=== PATIENT | female | born 1950 | race Caucasian/White ===

== ENCOUNTER 2019-08-07 08:54 | Day surgery (SDC) | payer MEDICARE, MEDICAID, SELFPAY ==
[2019-08-04 16:54] VITALS: BMI 27.4
[2019-08-07] VITALS (8 sets, daily range): BP systolic 119–168; BP diastolic 55–108; PULSE 60–96; RESP 13–20; TEMP 36.3–36.6; O2SAT 96–100
[2019-08-07] MEDS: midazolam 1 mg/mL INJ 2 mL 2 MG IVP ×2 (09:46→10:12)
[2019-08-07] MEDS: sodium chloride 0.9% 1,000 ML 30 ML IV (09:46)
--- NOTE | 2019-08-07 09:54 | ANES.PREANES ---
Pre-Anesthetic Assessment Pre-Anesthetic Assessment: Height/Weight: Height 1.65 m Weight 74.843 kg Temp Pulse Resp BP Pulse Ox 97.3 F L 96 18 168/93 97 08/07/19 09:25 08/07/19 09:25 08/07/19 09:25 08/07/19 09:25 08/07/19 09:25 Proposed Procedure: Operation Date: 08/07/19 11:00 Proposed Procedures p EGD poss biopsy [id number] K21.9 K80.20(Not Applicable) - Paul Monreal MD s poss Laparoscopic Cholecystectomy poss open(Not Applicable) - Paul Monreal MD Last intake: Intake Last Liquid Date 08/06/19 Last Liquid Time 19:00 Last Solid Date 08/06/19 Last Solid Time 18:00 Social: Social History: Tobacco Exam: Pre-Anes Outpt Exam: alert, oriented x 3, clear to auscultation bilaterally and regular rate & rhythm Airway: Submandibular: WNL Cervical ROM: WNL MP: 2 Dentition: False (upper) Additional comments: teeth very poor History/ROS: No significant history except as noted Pulmonary: Pulmonary: Sleep apnea and SOB CV/HEM: CV/HEM: Afib (h/o) : : None reported Hepatic: Hepatic: None reported GI: GI: GERD (not well controlled) Metabolic: Metabolic: None reported Musc/skel: Musc/skel: OA/DJD Neuropsych: Neuropsych: Anxiety and Depression Anesthetic Plan: ASA status: III Anesthesia: Anesthesia Evaluation and General Risk of > 500 ml blood loss (7ml/kg in children): No Meds/Allergies Current Medications: Current Medications Generic Name Dose Route Start Last Admin Trade Name Freq PRN Reason Stop Dose Admin Sodium Chloride 1,000 mls @ 30 ml s/hr 08/07/19 09:30 08/07/19 09:46 Sodium Chloride 0.9% IV 08/08/19 09:29 30 mls/hr .Q24H ZAHEER Administration PFSH Anesthesia PFSH: Medical History (Updated 08/07/19 @ 09:58 by Michael Rosen MD) Anxiety (Acute) Cholelithiasis (Acute) Chronic atrial fibrillation (Acute) GERD without esophagitis (Acute) Surgical History Cataract extraction status of left eye (Acute) History of arthroscopic knee surgery (Acute) RIGHT X 2 Social History Smoking and tobacco status: current every day smoker Alcohol intake: never Data Anesthesia Cardiac Studies: No Data to Display
--- NOTE | 2019-08-07 09:57 | PM.HPUD ---
H&P update H&P Update: DATE OF SURGERY/PROCEDURE: 08/07/19 DATE H&P PERFORMED: 07/14/19 H&P UPDATE INFORMATION: H&P completed within last 30 days and No changes to prior documentation PLANNED PROCEDURE: Operation Date: 08/07/19 11:00 Proposed Procedures p EGD poss biopsy [id number] K21.9 K80.20(Not Applicable) - Paul Monreal MD s poss Laparoscopic Cholecystectomy poss open(Not Applicable) - Paul Monreal MD Full H&P Medications/Allergies: Current Medications: Current Medications Generic Name Dose Route Start Last Admin Trade Name Freq PRN Reason Stop Dose Admin Sodium Chloride 1,000 mls @ 30 ml s/hr 08/07/19 09:30 08/07/19 09:46 Sodium Chloride 0.9% IV 08/08/19 09:29 30 mls/hr .Q24H ZAHEER Administration Perinent History: Social History: Social History Smoking and tobacco status: current every day smoker Alcohol intake: never
[2019-08-07] MEDS: ciprofloxacin 400 MG/200 ML PREMIX 200 MG IV (10:58)
--- NOTE | 2019-08-07 11:15 | PM.OP ---
Operative Report Date of procedure: 08/07/19 Pre-op Diagnosis: GERD Cholelithiasis Post-op Diagnosis: Normal EGD Cholelithiasis Procedure Done: Laparoscopic cholecystectomy Specimens removed/disposition: Gallbladder Surgeon: Paul Monreal Anesthesia: General Estimated blood loss (mL): 10 Condition: stable Disposition: PACU Procedure: The patient was taken to the operating room and was intubated under general anesthesia. A gastroscope was introduced and advanced up to the second portion of the duodenum and slowly withdrawn. The first and second portion of the duodenum was normal. The fundus, antrum, body and pylorus of the stomach was normal. The Z line was at 40 cm. The rest of the esophagus was normal. After the antibiotic had been administered, the abdomen was prepped and draped in a sterile manner. Using a #15 blade, a 1 centimeter infraumbilical curvilinear incision was made and using an open Jaimee technique the peritoneal cavity was entered. A 10 millimeter port was placed and 15 millimeters of pneumoperitoneum was created. A 10 millimeter, 30 degrees scope was then introduced. Three 5 millimeter ports were placed in the epigastric, midclavicular and the anterior axillary line two fingerbreadths below the costal margin on the right side under the direct visualization. Ratcheted forceps were introduced into the lateral most port and was used to retract the fundus of the gallbladder cephalad and using forceps the infundibulum of the gallbladder was retracted laterally. Using L-hook cautery the peritoneum overlying the Calot's triangle was opened medially and laterally until the cystic duct and the cystic artery were skeletonized. Dissection was carried along the body of the gallbladder and after ensuring critical view of safety, 4 clips applied on the cystic duct and 3 clips applied on the cystic artery and cut leaving, 3 clips on the remaining portion of the duct and 2 clips on the remaining portion of the artery. The rest of the gallbladder was dissected off the liver using L-hook cautery. There was no bleeding or bile leaking noted from the gallbladder fossa and the clips appeared to be in place. An EndoCatch bag was introduced to remove the gallbladder. All the ports were removed under direct visualization and there was no bleeding noted from the port sites. The fascia of the umbilicus was closed using [id number] 0 Vicryl sutures and the subcutaneous tissue was approximated using 3-0 Vicryl sutures. The skin at all four ports were closed using 4-0 Monocryl and Dermabond. A total of 10 millimeters of 0.5% Marcaine was infiltrated around the port sites. The patient was stable throughout the procedure.
[2019-08-07] MEDS: ondansetron 2 mg/ML SDV 2 mL 4 MG IVP (12:02)
== END 2019-08-07 13:05 | disposition home or self-care (01) ==
PROVIDERS: Family Provider Nurse Practitioner Family; PCP Registered Nurse; Visit Provider Surgery
PROC: 0DJ08ZZ Inspection of Upper Intestinal Tract, Via Natural or Artificial Opening Endoscopic (ICD-10-PCS; CPT 43235; principal; 2019-08-07 11:00)
PROC: 0FT44ZZ Resection of Gallbladder, Percutaneous Endoscopic Approach (ICD-10-PCS; CPT 47562; 2019-08-07 11:00)
DX: K80.10 Calculus of gallbladder with chronic cholecystitis without obstruction (principal); F17.210 Nicotine dependence, cigarettes, uncomplicated; I48.20 Chronic atrial fibrillation, unspecified; M19.90 Unspecified osteoarthritis, unspecified site; K21.9 Gastro-esophageal reflux disease without esophagitis; G47.30 Sleep apnea, unspecified
CPT/HCPCS: 47562; 12345; 88304; 96365; 96374; 96375; J0744; J1100; J2001; J2250; J2405; J2704; J2710; J3010; J3490; J7030

== ENCOUNTER → 2019-11-23 10:13 | Outpatient (BNVA) | payer MEDICARE, MEDICAID, SELFPAY | PROVIDERS: Family Provider Nurse Practitioner Family; PCP Registered Nurse; Referring Provider Registered Nurse; Visit Provider Podiatrist Foot & Ankle Surgery | DX: M79.671 Pain in right foot (principal); M79.672 Pain in left foot; M77.32 Calcaneal spur, left foot; M72.2 Plantar fascial fibromatosis | CPT/HCPCS: 73630 ==

== ENCOUNTER 2019-11-23 12:12 | Outpatient (CLI) | payer MEDICARE, MEDICAID, SELFPAY | END 2019-11-23 12:13 | disposition home or self-care (01) | LOC: SPT 12:13 | PROVIDERS: Family Provider Nurse Practitioner Family; PCP Registered Nurse; Visit Provider Podiatrist Foot & Ankle Surgery | DX: Z46.89 Encounter for fitting and adjustment of other specified devices (principal); M72.2 Plantar fascial fibromatosis; M79.671 Pain in right foot; M79.672 Pain in left foot; M77.32 Calcaneal spur, left foot | CPT/HCPCS: 73630; L4397 ==

== ENCOUNTER 2020-01-01 08:31 | Outpatient (CLI) | payer MEDICARE, MEDICAID, SELFPAY ==
--- NOTE | 2020-01-01 09:30 | MR_ITS ---
WS: [id number] MRI LEFT KNEE NONCONTRAST TECHNIQUE: Axial PD, coronal PD fat sat, coronal PD, sagittal PD, and sagittal PD fat-sat images obta ined. CLINICAL INFORMATION: M25.561 Pain in left knee COMPARISON: None. FINDINGS: Distal quadriceps and patella tendons are intact. Normal ACL. Normal posterior cruciate ligament. Sma ll amount of prepatellar and infrapatellar soft tissue edema. Small suprapatellar effusion. Joint susana nt space narrowing worse in the medial joint compartment. Edema in the medial tibial plateau. Edema a long the medial collateral ligament which appears intact. No significant edema in the medial femoral condyle. Mild chronic narrowing of the medial and lateral meniscus. Small amount of chronic intrasubstance sig nal abnormality involving the posterior horn medial meniscus. Subacute appearing horizontal tear invo lving the posterior horn medial meniscus extending to the meniscal root. Mild chondromalacia patella. Small amount of popliteal edema. MR/MR knee LT wo con* [id number] IMPRESSION: 1. Anterior and posterior cruciate ligaments are intact. 2. Horizontal tear involving the posterior horn medial meniscus extending to t he meniscal root. Chronic thinning of the medial and lateral meniscus. 3. Diffuse edema involving the medial tibial plateau extending to the articula r surface with a small amount of edema along the medial collateral ligament whi ch appears intact consistent with grade 1 injury. 4. Small amount of prepatellar and popliteal edema. Small joint effusion. 5. Mild chondromalacia patella.
== END 2020-01-01 08:32 | disposition home or self-care (01) ==
LOC: RADSHAW 08:40
PROVIDERS: PCP Nurse Practitioner Family; Visit Provider Nurse Practitioner Family
DX: S83.242A Other tear of medial meniscus, current injury, left knee, initial encounter (principal); X58.XXXA Exposure to other specified factors, initial encounter; R60.9 Edema, unspecified; M25.462 Effusion, left knee; M22.42 Chondromalacia patellae, left knee
CPT/HCPCS: 73721

== ENCOUNTER → 2020-06-12 08:32 | Outpatient (BNVA) | payer MEDICARE, MEDICAID, SELFPAY | PROVIDERS: PCP Nurse Practitioner Family; Visit Provider Internal Medicine | DX: M89.49 Other hypertrophic osteoarthropathy, multiple sites (principal); Z79.899 Other long term (current) drug therapy; Z11.59 Encounter for screening for other viral diseases; Z11.1 Encounter for screening for respiratory tuberculosis; M32.9 Systemic lupus erythematosus, unspecified; D86.9 Sarcoidosis, unspecified; M54.2 Cervicalgia; K12.1 Other forms of stomatitis; M35.2 Behcet's disease; Z87.891 Personal history of nicotine dependence; M25.50 Pain in unspecified joint | CPT/HCPCS: 36415; 80053; 82306; 82310; 82550; 82728; 82784; 82955; 83516; 83540; 83735; 83970; 84100; 84443; 85025; 85651; 86431; 86480; 86704; 86803; 86812; 87340; 99203; 99204 ==

== ENCOUNTER 2020-06-19 07:42 | Outpatient (CLI) | payer MEDICARE, MEDICAID, SELFPAY ==
--- NOTE | 2020-06-19 09:00 | XR_ITS ---
WS: [id number] Left hand, 2 views, 06/19/2020 Clinical Data: M89.49 - Other hypertrophic osteoarthropathy, multiple sites Comparison: Left hand, 10/12/2017. Findings: No fractures or dislocations are seen. There is osteoarthritic change of the PIP and DIP joints which has progressed moderately. There is minimal osteoarthritis of the left first IP joint. The MP joints are spared. No periarticular demineralization or calcifications are seen. XR/XR hand LT 2V [id number] Impression: Moderate progression of the left hand PIP and DIP joint osteoarthritis.
--- NOTE | 2020-06-19 09:30 | XR_ITS ---
WS: [id number] Right hand, 2 views, 06/19/2020 Clinical Data: M89.49 - Other hypertrophic osteoarthropathy, multiple sites Comparison: None. Findings: No fractures or dislocations are seen. There is osteoarthritic change of the PIP and DIP joints of the second through fifth digits with moderate narrowing and sclerosis. There is osteoarthri tic change of the right first IP joint. The MP joints are spared.No periarticular demineralization or calcifications are seen. XR/XR hand RT 2V [id number] Impression: Osteoarthritis of the right hand PIP and DIP joints.
--- NOTE | 2020-06-19 09:45 | XR_ITS ---
WS: [id number] Left foot, 2 views, 06/19/2020 Clinical Data: M25.50 - Pain in unspecified joint Comparison: Bilateral feet, 11/23/2019. Findings: No fractures or dislocations are seen. No bone destruction or erosion is noted. The joint spaces and soft tissues are normal. There is a small plantar spur and Achilles spur. XR/XR foot LT 2V [id number] Impression: Negative left foot.
--- NOTE | 2020-06-19 10:00 | XR_ITS ---
WS: [id number] Right foot, 2 views, 06/19/2020 Clinical Data: M25.50 - Pain in unspecified joint Comparison: None. Findings: No fractures or dislocations are seen. No bone destruction or erosion is noted. The joint spaces and soft tissues are normal. No periarticular demineralization or calcifications are seen. XR/XR foot RT 2V [id number] Impression: Negative right foot.
--- NOTE | 2020-06-19 10:30 | XR_ITS ---
WS: [id number] Lateral views of cervical spine in the flexion, extension and neutral positions. 06/19/2020 Clinical Data: M89.49 - Other hypertrophic osteoarthropathy, multiple sites Comparison: Cervical spine, 01/06/2011. Findings: There is anterior osteoarthritic spurring from C3 through C6. Degenerative disc narrowing is present at C4-C5 and C5-C6. No prevertebral soft tissue swelling is seen. No compression fractures are noted. No limitation of motion or subluxation is seen on flexion or extension. XR/XR cervical spine fl/ex [id number] Impression: 1. Osteoarthritis from C3 through C6. 2. Degenerative disc narrowing at C4-C5 and C5-C6. 3. No limitation of motion or subluxation is seen on flexion or extension.
--- NOTE | 2020-06-19 11:00 | XR_ITS ---
WS: [id number] Chest 2 views, 06/19/2020 Clinical Data: R76.12 - Nonspecific reaction to cell mediated immunity measurement of gamma interfero n antigen response without active tuberculosis Comparison: PA chest, 01/31/2017. Findings: No nodules, masses or effusions are seen. The heart is normal. The pulmonary vascularity is not increased. No pneumonia or pneumothorax is seen. The diaphragms are flattened. The aortic arch a nd descending aorta show minimal tortuosity and calcification. XR/XR chest 2V* [id number] Impression: Hyperinflation and atherosclerosis.
== END 2020-06-19 07:43 | disposition home or self-care (01) ==
LOC: RAD 07:46
PROVIDERS: PCP Nurse Practitioner Family; Visit Provider Internal Medicine
DX: M89.49 Other hypertrophic osteoarthropathy, multiple sites (principal); R76.12 Nonspecific reaction to cell mediated immunity measurement of gamma interferon antigen response without active tuberculosis; M25.50 Pain in unspecified joint; I70.90 Unspecified atherosclerosis; M47.812 Spondylosis without myelopathy or radiculopathy, cervical region; M19.042 Primary osteoarthritis, left hand; M19.041 Primary osteoarthritis, right hand
CPT/HCPCS: 71046; 72040; 73120; 73620

== ENCOUNTER → 2020-06-27 09:47 | Outpatient (BNVA) | payer MEDICARE, MEDICAID, SELFPAY | PROVIDERS: PCP Nurse Practitioner Family; Visit Provider Internal Medicine | DX: M25.50 Pain in unspecified joint (principal); M89.49 Other hypertrophic osteoarthropathy, multiple sites; M54.2 Cervicalgia; Z79.899 Other long term (current) drug therapy; R76.8 Other specified abnormal immunological findings in serum; R76.12 Nonspecific reaction to cell mediated immunity measurement of gamma interferon antigen response without active tuberculosis; R70.0 Elevated erythrocyte sedimentation rate; Z87.891 Personal history of nicotine dependence | CPT/HCPCS: 99214 ==

== ENCOUNTER 2020-07-22 07:40 | Outpatient (CLI) | payer MEDICARE, MEDICAID, SELFPAY ==
--- NOTE | 2020-07-22 08:39 | FL_ITS ---
WS: [id number] ESOPHAGRAM TECHNIQUE: Double contrast examination was performed with thin and thick barium. Upright and GROSS imag es were obtained. CLINICAL INFORMATION: DYSPHAGIA COMPARISON: None. Fluoroscopy time 2.5 minutes FINDINGS: Swallowing: Penetration with thin liquids. No active aspiration. Esophagus: Mild esophageal dysmotility. No evidence of high-grade stricture or obstructing mass. No d ifficulties with barium tablet. Gastroesophageal reflux: Moderate esophageal hiatal hernia. Active reflux in the supine and upright p ositions. Evidence of reflux esophagitis in the distal esophagus. Rugal fold thickening consistent with gastrit is.Eccentric ulceration at the GE junction may be due to reflux esophagitis. Neoplasm not entirely ex cluded. This can be further evaluated with endoscopy. Fluoroscopy time: 2.5 minutes. FL/WV barium swallow [id number] IMPRESSION: 1. Penetration with thin liquids. No active aspiration. 2. Mild esophageal dysmotility. No evidence of stricture. 3. Moderate esophageal hiatal hernia with active reflux visualized in the upri ght and supine positions. 4. Eccentric concave ulceration at the GE junction may be due to reflux esopha gitis. Neoplasm not entirely excluded. Recommend further evaluation with endosc opy. 5. Evidence of reflux esophagitis in the distal esophagus. Rugal fold thickeni ng consistent with gastritis.
--- NOTE | 2020-07-22 08:39 | CT_ITS ---
WS: [id number] CT NECK TECHNIQUE: Contrast-enhanced CT of the neck with coronal and sagittal reformatted images. CLINICAL INFORMATION: DYSPHAGIA COMPARISON: None. DLP: 2282.[address] scans at [facility] use at least one of these dose optimization techniques: automat ed exposure control; mA and/or kV adjustment per patient size (includes targeted exams where dose is matched to clinical indication); or iterative reconstruction. FINDINGS: Parotid glands are normal. Normal submandibular glands. Normal thyroid gland. Tongue base is normal. Normal parapharyngeal fat. No evidence of supraglottic or glottic mass. Lung apices are well aerated. Partially visualized intracranial contents are normal. Mastoid air cells are well aerated. Partial o pacification of the hypoplastic left maxillary sinus. Paranasal sinuses are otherwise well aerated. N o cervical lymphadenopathy. Moderate spondylitic changes cervical spine. CT/CT neck w con* [id number] IMPRESSION: 1. No evidence of supraglottic or glottic mass. 2. Subglottic airway is patent. 3. No cervical lymphadenopathy. 4. Normal salivary glands. 5. Partial opacification left maxillary sinus. 6. Normal tongue base and parapharyngeal fat.
[2020-07-22] MEDS: iohexol 300 mg/mL 100 mL Btl IV (09:13)
== END 2020-07-22 07:41 | disposition home or self-care (01) ==
PROVIDERS: PCP Nurse Practitioner Family; Visit Provider Specialist
DX: R13.10 Dysphagia, unspecified (principal); K44.9 Diaphragmatic hernia without obstruction or gangrene
CPT/HCPCS: 70491; 74220; Q9967

== ENCOUNTER → 2020-07-25 11:00 | Outpatient (BNVA) | payer MEDICARE, MEDICAID, SELFPAY | PROVIDERS: PCP Nurse Practitioner Family; Referring Provider Internal Medicine; Visit Provider Student in an Organized Health Care Education/Training Program | DX: R76.12 Nonspecific reaction to cell mediated immunity measurement of gamma interferon antigen response without active tuberculosis (principal); R76.8 Other specified abnormal immunological findings in serum; J06.9 Acute upper respiratory infection, unspecified; R68.89 Other general symptoms and signs | CPT/HCPCS: 87015; 87116; 87206; 87801 ==

== ENCOUNTER 2020-07-31 09:24 | Outpatient (CLI) | payer MEDICARE, MEDICAID, SELFPAY ==
--- NOTE | 2020-07-31 10:30 | CT_ITS ---
WS: [id number] CT CHEST WITHOUT INTRAVENOUS CONTRAST HISTORY: cough, right chest pain TECHNIQUE: Contiguous 5 mm axial imaging performed on the thorax. Coronal and sagittal reformats are submitted. All CT scans at [facility] use at least one of these dose optimization techniq ues: automated exposure control; mA and/or kV adjustment per patient size (includes targeted exams wh ere dose is matched to clinical indication); or iterative reconstruction. CONTRAST: None DLP: 923.87 mGycm COMPARISON: 03/13/2000 Lungs and central airway: Well aerated lungs. No pneumonia or pulmonary mass. Focal area of bronchial wall thickening in the anterior RIGHT middle lobe. Similar findings anteriorly in the LEFT upper lob e. There is very mild bronchiectasis in the RIGHT middle lobe. Pleura: Normal. No pleural effusion. Heart and pericardium: Normal size heart with no pericardial effusion. Mediastinum and khushbu: No mediastinum or hilar adenopathy. Vessels: Minimal atherosclerotic plaque within the aorta. Pulmonary artery size is slightly enlarged. Chest wall and lower neck: No soft tissue masses. Upper abdomen: Prior cholecystectomy. No bile duct dilatation. Mild hepatic steatosis. No adrenal mas s. Exophytic cyst from the LEFT kidney has increased in size since 2009. Maximum diameter of the cyst is 2.1 cm. Osseous structures: No destructive process. CT/CT chest wo con [id number] IMPRESSION: 1. No pneumonia. 2. Interval development of very mild bronchiectasis in the RIGHT middle lobe w ith a small amount of adjacent bronchial wall thickening. 3. Mild atherosclerosis aorta. 4. Mild pulmonary hypertension. 5. Prior cholecystectomy.
== END 2020-07-31 09:25 | disposition home or self-care (01) ==
LOC: RADWPI 09:28
PROVIDERS: PCP Registered Nurse; Visit Provider Student in an Organized Health Care Education/Training Program
DX: R05 Cough (principal); R07.89 Other chest pain; Z90.49 Acquired absence of other specified parts of digestive tract; I27.20 Pulmonary hypertension, unspecified; I70.0 Atherosclerosis of aorta; R76.12 Nonspecific reaction to cell mediated immunity measurement of gamma interferon antigen response without active tuberculosis
CPT/HCPCS: 71250; 87086

== ENCOUNTER → 2020-08-16 11:38 | Outpatient (BNVA) | payer MEDICARE, MEDICAID, SELFPAY | PROVIDERS: PCP Registered Nurse; Visit Provider Surgery | DX: K21.00 Gastro-esophageal reflux disease with esophagitis, without bleeding (principal) | CPT/HCPCS: 87635 ==

== ENCOUNTER → 2020-08-20 10:43 | Outpatient (BNVA) | payer MEDICARE, MEDICAID, SELFPAY | PROVIDERS: PCP Registered Nurse; Visit Provider Student in an Organized Health Care Education/Training Program | DX: N30.90 Cystitis, unspecified without hematuria (principal); R76.12 Nonspecific reaction to cell mediated immunity measurement of gamma interferon antigen response without active tuberculosis; Z22.7 Latent tuberculosis; M25.50 Pain in unspecified joint | CPT/HCPCS: 80076; 81000; 87086 ==

== ENCOUNTER 2020-08-21 05:56 | Day surgery (SDC) | payer MEDICARE, MEDICAID, SELFPAY ==
[2020-08-20 11:06] VITALS: BMI 34.2
--- NOTE | 2020-08-21 06:25 | W.PM.OPSUD ---
Surgery/Procedure H&P Update DATE OF PROCEDURE: August 21, 2020 DATE H&P PERFORMED: 08/15/20 H&P UPDATE INFORMATION: I have reviewed H&P completed within last 30 days, I have examined patient prior to procedure and No changes to prior documentation PREOP DIAGNOSIS: Dysphagia PRIMARY INDICATION FOR PROCEDURE: The same PLANNED PROCEDURE: Operation Date: 08/21/20 07:00 Proposed Procedures p EGD 12226 K21.00(Not Applicable) - Raimundo Narvaez MD
[2020-08-21] MEDS: lidocaine 1% INJ 20 mL INTRADERMA (06:26)
[2020-08-21] MEDS: sodium chloride 0.9% 1,000 ML 30 ML IV (06:35)
--- NOTE | 2020-08-21 06:40 | P.ANESASSM_ITS ---
Pre-Anesthetic Assessment Pre-Anesthetic Assessment: Height/Weight: Height 1.55 m Weight 82.1 kg Preop Diagnosis: Dysphagia Proposed Procedure: Operation Date: 08/21/20 07:00 Proposed Procedures p EGD 13893 K21.00(Not Applicable) - Raimundo Narvaez MD Familial anesthetic complications: None Was Beta Lauryn taken within 24 hours: N/A Last intake: Intake Last Liquid Date 08/20/20 Last Liquid Time 19:30 Last Solid Date 08/20/20 Last Solid Time 17:00 Social: Social History: No alcohol and No tobacco Comment: former smoker Exam: Pre-Anes Outpt Exam: alert, oriented x 3, clear to auscultation bilaterally and regular rate & rhythm Airway: Cervical ROM: WNL MP: 3 Dentition: Other (no teeth) Pulmonary: Pulmonary: COPD Comments: I have the Tb germ, but the [facility] de partment says i'm not contagious CV/HEM: CV/HEM: Afib GI: GI: GERD Anesthetic Plan: ASA status: 3 Anesthesia: MAC Risk of > 500 ml blood loss (7ml/kg in children): No Meds/Allergies Current Medications: Current Medications Generic Name Dose Route Start Last Admin Trade Name Freq PRN Reason Stop Dose Admin Sodium Chloride 1,000 mls @ 30 ml s/hr 08/21/20 06:00 08/21/20 06:35 Sodium Chloride 0.9% IV 30 mls/hr .Q24H ZAHEER Administration PFSH Anesthesia PFSH: Medical History Anxiety Chronic atrial fibrillation GERD without esophagitis Suspected tuberculosis Surgical History Cataract extraction status of left eye History of arthroscopic knee surgery RIGHT X 2 Status post laparoscopic cholecystectomy (~07/2019) [place] [facility] History Smoking and tobacco status: former smoker Alcohol intake: never History of recent travel: No Data Anesthesia Cardiac Studies: No Data to Display
[2020-08-21 07:08] VITALS: BP 136/66; PULSE 74; RESP 16; TEMP 36.1; O2SAT 97
--- NOTE | 2020-08-21 07:10 | ANE.PACU2 ---
Inpatient post-anesthesia follow up: Vital signs: Temperature 97 F Pulse Rate 74 Respiratory Rate 16 Blood Pressure 136/66 Pulse Oximetry 97 Oxygen Delivery Me thod Room Air Oxygen Flow Rate Fraction of Inspir ed Oxygen
[2020-08-21 07:21] VITALS: BP 137/70; PULSE 70; RESP 16; O2SAT 100
[2020-08-22 05:52] LABS: H. Pylori / CLO Test Negative
== END 2020-08-21 07:34 | disposition home or self-care (01) ==
PROVIDERS: PCP Registered Nurse; Visit Provider Surgery
PROC: 0DJ08ZZ Inspection of Upper Intestinal Tract, Via Natural or Artificial Opening Endoscopic (ICD-10-PCS; CPT 43235; principal; 2020-08-21 07:00)
DX: R13.10 Dysphagia, unspecified (principal); K44.9 Diaphragmatic hernia without obstruction or gangrene; K29.70 Gastritis, unspecified, without bleeding; J44.9 Chronic obstructive pulmonary disease, unspecified; I48.91 Unspecified atrial fibrillation; K21.9 Gastro-esophageal reflux disease without esophagitis; Z87.891 Personal history of nicotine dependence
CPT/HCPCS: 12345; 43239; 87077; J2704; J7030

== ENCOUNTER → 2020-11-12 11:45 | Outpatient (BNVA) | payer MEDICARE, MEDICAID, SELFPAY | PROVIDERS: PCP Registered Nurse; Visit Provider Student in an Organized Health Care Education/Training Program | DX: Z22.7 Latent tuberculosis (principal) | CPT/HCPCS: 82977; 83615; 84450; 84460 ==

== ENCOUNTER 2021-05-23 10:06 | Emergency (ER) | payer MEDICARE, MEDICAID, SELFPAY ==
[2021-05-23 10:23] VITALS: BP 125/77; PULSE 82; RESP 18; TEMP 36.8; O2SAT 96; BMI 26.6
--- NOTE | 2021-05-23 10:32 | ED_ITS ---
HPI - Ear Problem General: Chief complaint: Ear Stated complaint: L EAR PAIN Time Seen by Provider: 05/23/21 10:31 History of Present Illness: MD Complaint: ear pain (left ear) Location: left ear Duration: constant Severity: moderate Relieving factors: NDAIDs Exacerbating factors: nothing Discharge from ear: no Associated symptoms: Reports ear or mastoid pain (left ear) and headache(s); Denies external ear pain, fever(s) or neck pain Treatment prior to arrival: none Review of Systems Const: Denies: fever(s), chills or fatigue Eyes: Denies: change in vision or eye discomfort ENMT: Reports: throat pain, odynophagia and ear or mastoid pain (left ear); Denies: nasal discharge or nasal congestion Card: Denies: chest pain, palpitations, edema, swelling of feet/ankles, dyspnea on exertion or orthopnea Resp: Denies: dyspnea, productive cough or non-productive cough GI: Denies: abdominal pain, nausea, vomiting, diarrhea, constipation or hematochezia : Denies: flank pain, dysuria or hematuria Musc: Denies: neck pain, back pain or extremity swelling Skin/Breast: Denies: rash or new lesions Neuro: Reports: headache(s); Denies: numbness in extremities or weakness in extremities PFSH ED PFSH: Medical History Anxiety Behcet's syndrome Chronic atrial fibrillation Fibromyalgia GERD without esophagitis Suspected tuberculosis Surgical History Cataract extraction status of left eye History of arthroscopic knee surgery RIGHT X 2 History of esophagogastroduodenoscopy (EGD) (~08/2020) Status post laparoscopic cholecystectomy (~07/2019) Performed at [facility] [place] Family History Father CAD (coronary artery disease) Brother Cancer Sister Cancer Denies family history of Diabetes Clotting disorder Dementia Chronic kidney disease (CKD) Suicide Anesthesia complication Bleeding disorder Lung disease Stroke Social History Smoking and tobacco status: former smoker Alcohol intake: never History of recent travel: No Physical Exam Const: COMMON NORMALS: no acute distress, patient oriented x3, healthy appearing and alert GENERAL APPEARANCE: cooperative and comfortable HENMT: COMMON NORMALS: normocephalic, external ears normal and EAC's normal HEAD & SCALP: normocephalic EXTERNAL EAR: Yes external ears normal EXTERNAL AUDITORY CANAL: EAC's normal TYMPANIC MEMBRANE: TM normal on the right and TM abnormal TM laterality: left Details: effusion Details: purulent, erythematous and fluid behind TM MOUTH: Normal oral and palatal mucosa present THROAT: uvula midline and posterior oropharynx abnormal edema and erythema Eye: COMMON NORMALS: Equal, round and reactive pupils present PUPIL: Yes Equal, round and reactive pupils present Neck/C-Spine: COMMON NORMALS: supple GENERAL: Yes normal visual inspection Resp: COMMON NORMALS: normal respiratory effort, No retractions, No use of accessory muscles and clear to auscultation bilaterally AUSCULTATION: clear to auscultation bilaterally Cardio: COMMON NORMALS: regular rate, regular rhythm, S1 normal heart sound present, S2 normal heart sound present, No gallops present (Cardio), No clicks present (Cardio), No murmurs present (Cardio) and Peripheral pulses 2+ throughout RATE: regular rate RHYTHM: regular rhythm HEART SOUNDS: S1 normal heart sound present and S2 normal heart sound present PERIPHERAL PULSES: Peripheral pulses 2+ throughout GI: COMMON NORMALS: Normal to inspection, nondistended, normoactive bowel sounds present, Soft to palpation, non-tender and no masses PALPATION: Yes Soft to palpation : COMMON NORMALS: Yes no CVA tenderness BLADDER/KIDNEY EXAM: Yes no CVA tenderness Back/Pelvis: COMMON NORMALS: no CVA tenderness Extremity: COMMON NORMALS: normal to inspection Neuro: COMMON NORMALS: patient oriented x3 and moves all extremities SENSORIUM/ORIENTATION: Yes alert Skin: GENERAL SKIN EXAM: dry skin Course Vital Signs: Vital signs: Vital Signs Temperature 98.2 F 05/23/21 11:01 Pulse Rate 62 05/23/21 11:01 Respiratory Rate 16 05/23/21 11:01 Blood Pressure 120/69 05/23/21 11:01 Pulse Oximetry 96 05/23/21 10:23 MDM - Ear MDM Narrative: Medical decision making narrative: Patient is a 70-year-old female comes to the ED with left ear pain. She also endorses having a sore throat and headache as well. Denies any drainage from ear. Vitals are stable. Exam shows otitis media left ear and hair posterior oropharynx had some erythema and swelling noted. Strep test was negative. Patient was diagnosed with otitis media and pharyngitis. She was discharged home with a prescription for amoxicillin. She was told to follow-up with her PCP in 7 to 10 days for reevaluation. Patient understood and agreed with plan. Lab Data: Labs: Lab Results 05/23/21 10:50 Group A Strep Rapi d Negative (Negative) Discharge Plan Discharge Patient Disposition: Home Clinical Impression: Otitis media Qualifiers: Otitis media type: serous Chronicity: acute Laterality: left Recurrence: non- recurrent Qualified Code(s): H65.02 - Acute serous otitis media, left ear Pharyngitis Qualifiers: Pharyngitis/tonsillitis etiology: unspecified etiology Qualified Code(s): J02.9 - Acute pharyngitis, unspecified Condition: Stable Prescriptions: New amoxicillin 500 mg capsule 500 mg PO BID 10 Days Qty: 20 RF: 0 No Action Ambien 10 mg tablet 10 mg PO BEDTIME 30 Days Qty: 30 RF: 5 diclofenac sodium [Voltaren] 1 % gel 4 gm TOPICAL QID Qty: 100 RF: 1 Hold Instructions: Resume on 08/28/20. isoniazid 300 mg tablet 300 mg PO .weekly 90 Days Qty: 36 RF: 0 pyridoxine (vitamin B6) 50 mg tablet 50 mg PO DAILY Qty: 90 RF: 0 Colace 100 mg capsule 100 mg PO BID PRN (Reason: Constipation) RF: 0 vitamin B complex Tablet 1 tab PO DAILY RF: 0 fluorouracil 5 % cream 1 applic topical BID 21 Days Qty: 40 RF: 0 Nexium 20 mg Capsule,Delayed Release(Dr/Ec) 40 mg PO DAILY Qty: 0 RF: 0 Discharge Orders: Discharge ED (Routine); Ordered 05/23/21 Ordered By: Harsha Ford Referrals: Malou Cummings FNP [Primary Care Provider] - Discharge Diet: Regular Discharge Activity: Increase activity as tolerated Patient Instructions: Otitis Media - Adult, Pharyngitis (ED) Activity Restrictions/Additional Instructions: Follow-up with medical provider as directed in 7 to 10 days for reevaluation. Take medications as prescribed. Return to the ER or your medical provider if condition worsens. Please read and understand discharge instructions. Thank you for choosing [facility] for your healthcare needs today. Please realize this is an emergency room and that we are providing you with a medical screening exam and this may not be complete and all inclusive of all the testing and or work up that you may need to determine your ailment or severity of your illness. It is very important that you follow up as instructed or that you return to the Emergency Department should you have concerns or if your condition changes or worsens in any way. Coding Level of Care Code ED It Service Delivery Manager for Latha Fwdevi Exam Comprehensive
[2021-05-23] MEDS: ibuprofen 800 mg tablet PO (11:00)
[2021-05-23 11:01] VITALS: BP 120/69; PULSE 62; RESP 16; TEMP 36.8
[2021-05-23 11:31] LABS: Rapid Strep A Test Negative (Negative)
== END 2021-05-23 11:09 | disposition home or self-care (01) ==
PROVIDERS: Emergency Provider Physician Assistant; PCP Registered Nurse
DX: H65.02 Acute serous otitis media, left ear (principal); J02.9 Acute pharyngitis, unspecified; Z87.891 Personal history of nicotine dependence
CPT/HCPCS: 87081; 87880; 99283

== ENCOUNTER → 2022-01-06 08:18 | Outpatient (BNVA) | payer MEDICARE, MEDICAID, SELFPAY | PROVIDERS: PCP Family Medicine; Visit Provider Family Medicine Adult Medicine | DX: R39.89 Other symptoms and signs involving the genitourinary system (principal) | CPT/HCPCS: 81000 ==

== ENCOUNTER → 2022-04-15 08:58 | Outpatient (BNVA) | payer MEDICARE, MEDICAID, SELFPAY | PROVIDERS: PCP Family Medicine; Visit Provider Internal Medicine Pulmonary Disease | DX: R06.09 Other forms of dyspnea (principal); R76.8 Other specified abnormal immunological findings in serum; M25.641 Stiffness of right hand, not elsewhere classified; M25.642 Stiffness of left hand, not elsewhere classified; R91.8 Other nonspecific abnormal finding of lung field; Z87.891 Personal history of nicotine dependence; Z86.15 Personal history of latent tuberculosis infection | CPT/HCPCS: 99204 ==

== ENCOUNTER → 2022-04-27 09:14 | Outpatient (BNVA) | payer MEDICARE, MEDICAID, SELFPAY | PROVIDERS: PCP Family Medicine; Visit Provider Obstetrics & Gynecology | DX: N81.3 Complete uterovaginal prolapse (principal) | CPT/HCPCS: 76830 ==

== ENCOUNTER → 2022-05-18 10:29 | Outpatient (BNVA) | payer MEDICARE, MEDICAID, SELFPAY | PROVIDERS: PCP Family Medicine; Visit Provider Internal Medicine Pulmonary Disease | DX: R91.8 Other nonspecific abnormal finding of lung field (principal); M25.641 Stiffness of right hand, not elsewhere classified; M25.642 Stiffness of left hand, not elsewhere classified; R76.8 Other specified abnormal immunological findings in serum; Z87.891 Personal history of nicotine dependence; J47.9 Bronchiectasis, uncomplicated; Z86.15 Personal history of latent tuberculosis infection | CPT/HCPCS: 99214 ==

== ENCOUNTER 2022-05-20 08:45 | Outpatient (CLI) | payer MEDICARE, MEDICAID, SELFPAY | END 2022-05-20 08:46 | disposition home or self-care (01) | PROVIDERS: PCP Family Medicine; Visit Provider Internal Medicine Pulmonary Disease | DX: R06.09 Other forms of dyspnea (principal) | CPT/HCPCS: 94010; 94618; 94726; 94729 ==

== ENCOUNTER → 2022-06-25 09:25 | Outpatient (BNVA) | payer MEDICARE, MEDICAID, SELFPAY | PROVIDERS: PCP Family Medicine; Visit Provider Internal Medicine | DX: R76.8 Other specified abnormal immunological findings in serum (principal); M89.49 Other hypertrophic osteoarthropathy, multiple sites; K12.1 Other forms of stomatitis; M54.2 Cervicalgia; R76.12 Nonspecific reaction to cell mediated immunity measurement of gamma interferon antigen response without active tuberculosis; R70.0 Elevated erythrocyte sedimentation rate | CPT/HCPCS: 36415; 80053; 81001; 82550; 83516; 84155; 84165; 85025; 85651; 86036; 86140; 99214 ==

== ENCOUNTER → 2022-07-22 10:34 | Outpatient (BNVA) | payer MEDICARE, MEDICAID, SELFPAY | PROVIDERS: PCP Family Medicine; Visit Provider Internal Medicine | DX: R76.8 Other specified abnormal immunological findings in serum (principal); K12.1 Other forms of stomatitis; M89.49 Other hypertrophic osteoarthropathy, multiple sites | CPT/HCPCS: 99213 ==

== ENCOUNTER → 2022-10-21 14:32 | Outpatient (BNVA) | payer MEDICARE, MEDICAID, SELFPAY | PROVIDERS: PCP Family Medicine; Visit Provider Internal Medicine | DX: R76.8 Other specified abnormal immunological findings in serum (principal); Z79.899 Other long term (current) drug therapy; M25.50 Pain in unspecified joint; K12.1 Other forms of stomatitis; M89.49 Other hypertrophic osteoarthropathy, multiple sites; M94.0 Chondrocostal junction syndrome [Tietze] | CPT/HCPCS: 71046; 73620; 99214 ==

== ENCOUNTER → 2022-11-12 09:05 | Outpatient (BNVA) | payer MEDICARE, MEDICAID, SELFPAY | PROVIDERS: PCP Family Medicine; Visit Provider Internal Medicine Pulmonary Disease | DX: R91.1 Solitary pulmonary nodule (principal); J47.9 Bronchiectasis, uncomplicated; R76.8 Other specified abnormal immunological findings in serum; M25.641 Stiffness of right hand, not elsewhere classified; M25.642 Stiffness of left hand, not elsewhere classified; Z87.891 Personal history of nicotine dependence | CPT/HCPCS: 99214 ==

== ENCOUNTER 2022-11-23 09:23 | Outpatient (CLI) | payer MEDICARE, MEDICAID, SELFPAY ==
--- NOTE | 2022-11-23 09:33 | CTR_ITS ---
PROCEDURE INFORMATION: Exam: CT Chest Without Contrast; Diagnostic Exam date and time: 11/23/2022 10:50 AM Age: 72 years old Clinical indication: Condition or disease; Lung condition and disease; Pulmonary nodule, solitary; Additional info: Other disorders of lung TECHNIQUE: Imaging protocol: Diagnostic computed tomography of the chest without contrast. Radiation optimization: All CT scans at this facility use at least one of these dose optimization techniques: automated exposure control; mA and/or kV adjustment per patient size (includes targeted exams where dose is matched to clinical indication); or iterative reconstruction. REPORTING DATA: Count of CT and Cardiac NM exams in prior 12 months: This patient has received [address] and 0 known cardiac nuclear medicine studies in the 12 months prior to the current study. COMPARISON: 1. CT chest wo con [id number] 03/16/2022 11:[address] chest wo con [id number] 07/31/2020 9:[address] Chest w IV contrast* [id number] 03/13/2010 2:12 PM RADIATION DOSE METRICS: Total DLP (mGy-cm): 204.58 FINDINGS: Lungs: There are multiple small noncalcified nodules measuring less than 5 mm in the anterior left upper lobe such as on image number 28 series 3 and also in the anterior right upper lobe on similar levels. Allowing for technical differences (previous examination was done with 1 mm thick slices in today's exam with 5 mm thick (there has been no significant change in the appearance of these nodules. The 9 mm nodule abutting the minor fissure on 03/16/2022 is no longer identified and was presumably related to infectious or inflammatory disease. There is also an area of nodularity in the anterior tip of the left upper lobe seen previously and no longer identified also likely related to infectious or inflammatory disease. Nodularity in the posterior aspect of the right upper lobe abutting the fissure such as on image 19 series 4 also appears to be reduced. A pair of pulmonary nodules series 4, images 29 and 30 anterior left upper lobe not changed compared with 03/16/2022 appear more prominent than on 07/31/2020. Additional 1 year follow-up to demonstrate stability of this nodule may be prudent. No new or highly suspicious nodule is demonstrated on this exam. Pleural spaces: Unremarkable. No pneumothorax. No pleural effusion. Heart: Unremarkable. No cardiomegaly. No pericardial effusion. Coronary arteries: There is mild atherosclerotic calcification of the coronary arteries. Lymph nodes: There are small mediastinal lymph nodes not significantly changed no evidence of adenopathy. Vasculature: There is no thoracic aortic aneurysm. Bones/joints: Unremarkable. No acute fracture. Soft tissues: Unremarkable. CT/CT chest wo con [id number] IMPRESSION: 1. Scattered small noncalcified nodules not changed from 03/16/2022. Consider additional 1 year follow-up to demonstrate stability. 2. The findings of concern on 03/16/2022 have resolved and were likely related to infectious or inflammatory disease.
== END 2022-11-23 09:24 | disposition home or self-care (01) ==
PROVIDERS: PCP Family Medicine; Visit Provider Internal Medicine Pulmonary Disease
DX: R91.8 Other nonspecific abnormal finding of lung field (principal)
CPT/HCPCS: 71250

== ENCOUNTER 2022-11-28 07:54 | Emergency (ER) | payer MEDICARE, MEDICAID, SELFPAY ==
[2022-11-28 08:09] VITALS: BP 139/73; PULSE 70; RESP 16; O2SAT 97; BMI 25.2
[2022-11-28 08:11] VITALS: BP 139/73; PULSE 67; RESP 18; O2SAT 98
--- NOTE | 2022-11-28 08:13 | ED_ITS ---
HPI - Back Pain/Injury General: Chief Complaint: Back Pain/Injury Stated Complaint: back pain Time Seen by Provider: 11/28/22 08:05 Source: patient Mode of arrival: ambulatory Limitations: no limitations History of Present Illness: Patient is a 72-year-old female with an extensive past medical history here for multiple complaints. She states she woke up this morning with complaints of back pain, bilateral knee pains, pains in her hands, and chest pains. She states she has a history of RA and fibromyalgia and states all of these pains are chronic for her. She has multiple specialists. She has a complaint of a pulmonary lung nodule. Review of previous documentation shows this seems to be being followed up with Dr. Mclain/pulmonology. 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 Patient overall is a fairly poor historian as she jumps quickly from complaint to complaint. MD elicited complaint: back pain Onset (ago): day(s) (yesterday) Timing: constant Severity: moderate Similar Symptoms Previously: Yes Location: right lower back Radiation: none Exacerbating factors: movement and walking Relieving factors: none Associated symptoms: Deny abdominal pain, chills, dysuria, fatigue, fever(s), nausea, syncope, urinary urgency or vomiting Work related injury: No Review of Systems Const: Denies: fever(s), chills, body aches, fatigue or malaise Card: Reports: chest pain; Denies: palpitations, irregular heart rhythm, edema, swelling of feet/ankles, lightheadedness, syncope or pre-syncope Resp: Denies: dyspnea GI: Denies: abdominal pain, nausea, vomiting or diarrhea : Denies: flank pain, difficulty voiding, dysuria, urinary frequency, urinary urgency or urinary hesitancy Musc: Reports: neck pain, back pain, extremity pain and joint pain; Denies: joint redness Skin/Breast: Denies: rash Neuro: Denies: headache(s), numbness in extremities, weakness in extremities, sensory changes or dizziness [facility] ED PFSH: Medical History Anxiety Behcet's syndrome Chronic atrial fibrillation Fibromyalgia GERD without esophagitis Oral ulcer Strain of lumbar paraspinal muscle Surgical History Cataract extraction status of left eye History of arthroscopic knee surgery RIGHT X 2 History of esophagogastroduodenoscopy (EGD) (~08/2020) Status post laparoscopic cholecystectomy (~07/2019) Performed at [facility] [place] Family History Denies family history of Colon cancer Ovarian cancer Diabetes Heart disease Hypercholesteremia Breast cancer Hypertension Uterine cancer Thyroid disease Stroke Social History Smoking and tobacco status: former smoker Quit status (tobacco): has quit using tobacco Year quit tobacco: 2019 Former quit date comment: 1 ppd X 20 years Substance/Drug Use: never Physical Exam Const: COMMON NORMALS: no acute distress, average body habitus, patient oriented x3, no limitations, healthy appearing, alert and well nourished HENMT: COMMON NORMALS: normocephalic and atraumatic HEAD & SCALP: normal to inspection, normocephalic and atraumatic Eye: GENERAL EYE: appearance normal, both eyes and all related structures Neck/C-Spine: COMMON NORMALS: full ROM GENERAL: Yes normal visual inspection CERVICAL SPINE: No step off deformity and Yes Paracervical muscle tenderness Chest: COMMONS NORMALS: normal inspection of the chest CHEST: Yes tenderness Resp: COMMON NORMALS: normal respiratory effort and clear to auscultation bilaterally AUSCULTATION: clear to auscultation bilaterally Cardio: COMMON NORMALS: regular rate and regular rhythm RATE: regular rate RHYTHM: regular rhythm Back/Pelvis: THORACIC SPINE/UPPER BACK: Yes paraspinal muscle tenderness LUMBAR SPINE/LOWER BACK: Yes paraspinal muscle tenderness PELVIS: Yes b uttocks normal and No sciatic notch tenderness SACRUM: no tenderness COCCYX: no tenderness BACK IMAGE (FEMALE): 1. TTP Extremity: NARRATIVE EXTREMITY EXAM: RA changes noted to bilateral hands GENERAL: Yes normal exam except as noted Neuro: COMMON NORMALS: patient oriented x3, moves all extremities, no focal motor deficits, no sensory deficits noted and gait normal SENSORIUM/ORIENTATION: Yes alert Skin: COMMON NORMALS: no rashes or lesions noted GENERAL SKIN EXAM: no rashes or lesions noted Course Vital Signs: Vital signs: Vital Signs Pulse Rate 67 11/28/22 08:11 Respiratory Rate 18 05/13/23 08:11 Blood Pressure 139/73 11/28/22 08:11 Pulse Oximetry 98 11/28/22 08:11 Oxygen Delivery Me thod Room Air 11/28/22 08:09 MDM - Back Pain/Injury Medical Decision Making Patient has multiple medical complaints on today's history. She was somewhat of a poor historian as she quickly jumped from complaint to complaint. Ultimately I was able to kindly explained to her that most of her chronic issues are not going to be able to be addressed from an ED standpoint and that I would recommend continuing to follow-up with her specialists (rheumatology, pulmonology, gynecology, etc). I was able to pinpoint her main complaint for seeking emergency evaluation and that seemed to be the pain in the back. UA showing hematuria that she states is chronic and has been there for many many years. She has no history of kidney or ureter calculi. She states the pain in her back she has had many times before and thinks she most likely aggravated it yesterday after lifting several heavy objects. Patient states that she does not want any shots and would just like prescription medication to treat her discomfort. 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 I will place her on a prednisone taper and give her a small amount of tramadol that she may take sparingly for significant discomfort. Return to ED precautions given otherwise I would like her to follow-up with her primary care provider. Labs Laboratory Results Urine Color Straw (Yellow) 11/28/22 08:31 Urine Appearance Clear (CLEAR) 11/28/22 08:31 Urine pH 7 (5-7) 11/28/22 08:31 Ur Specific [place] 1.005 (1.005-1.030) 11/28/22 08:31 Urine Protein Neg (Negative) 11/28/22 08:31 Urine Glucose (UA) Norm (Normal) 11/28/22 08:31 Urine Ketones Negative (Negative) 11/28/22 08:31 Urine Blood 2+ (Negative) H 11/28/22 08:31 Urine Nitrate Negative (Negative) 11/28/22 08:31 Urine Bilirubin Neg (Negative) 11/28/22 08:31 Urine Urobilinogen Norm mg/dL (Negative) 11/28/22 08:31 Ur Leukocyte Esterase Negative (Negative) 11/28/22 08:31 Urine RBC 5-10 /hpf (0-2) H 11/28/22 08:31 Urine WBC None /hpf (0-5) 11/28/22 08:31 Ur Squamous Epith Cells 5-10 /hpf (0-5) H 11/28/22 08:31 Amorphous Sediment Not Reportable 11/28/22 08:31 Urine Bacteria Trace /hpf (NONE) 11/28/22 08:31 Urine Mucus Trace /hpf 11/28/22 08:31 Discharge Plan Discharge Patient Disposition: Home Clinical Impression: Acute exacerbation of chronic low back pain Condition: Stable Prescriptions: New prednisone 10 mg tablet 10 mg PO DAILY 10 Days Qty: 20 0RF Rx Instructions: Take 5 tabs on day 1-2, 4 tabs on day 3, 3 tabs on day 4, 2 tabs on day 5, and 1 tab on day 6 tramadol 50 mg tablet 50 mg PO Q6H PRN (Reason: pain) Qty: 10 0RF No Action Ambien 10 mg tablet 10 mg PO BEDTIME 30 Days Qty: 30 5RF diclofenac sodium [Voltaren] 1 % gel 4 gm TOPICAL QID Qty: 100 1RF Hold Instructions: Resume on 08/28/20. Rx Instructions: apply to single knee, ankle, foot; for foot includes sole/toes/top of foot meloxicam 7.5 mg tablet 7.5 mg PO BID Qty: 60 5RF Nexium 20 mg Capsule,Delayed Release(Dr/Ec) 40 mg PO DAILY Qty: 0 0RF Discharge Orders: Discharge ED (Routine); Ordered 11/28/22 Ordered By: Lucia Baker Referrals: Izabella Abdul DO [Primary Care Provider] - Patient Instructions: Opioid Safety, Pain Management Activity Restrictions/Additional Instructions: Please follow-up with your inspector automatic typewriter and primary care provider. Coding Level of Care Code ED [employer] Lab Technician for Latha Ceballos
[2022-11-28 09:25] LABS: Add Urine Microscopic? YES; Bilirubin Urine Neg (Negative); Blood Urine 2+ (Negative); Glucose Urine UA Norm (Normal); Ketones Urine Negative (Negative); Leukocyte Esterase Urine Negative (Negative); Nitrate Urine Negative (Negative); Protein Urine Neg (Negative); Specific Gravity, Urine 1.005 (1.005-1.030); Urine Appearance Clear (CLEAR); Urine Color Straw (Yellow); Urobilinogen Urine Norm (Negative); pH Urine 7 (5-7)
[2022-11-28 09:27] LABS: Add Urine Culture? No; Bacteria Urine TRACE /hpf; Mucus Urine TRACE /hpf
== END 2022-11-28 09:47 | disposition home or self-care (01) ==
PROVIDERS: Emergency Provider Physician Assistant; PCP Family Medicine
DX: G89.29 Other chronic pain (principal); M54.50 Low back pain, unspecified; Z87.891 Personal history of nicotine dependence
CPT/HCPCS: 81001; 99284

== ENCOUNTER → 2023-02-11 08:54 | Outpatient (BNVA) | payer MEDICARE, MEDICAID, SELFPAY | PROVIDERS: PCP Family Medicine; Visit Provider Internal Medicine Pulmonary Disease | DX: R76.8 Other specified abnormal immunological findings in serum; M25.641 Stiffness of right hand, not elsewhere classified; M25.642 Stiffness of left hand, not elsewhere classified; Z87.891 Personal history of nicotine dependence; J47.9 Bronchiectasis, uncomplicated; R91.8 Other nonspecific abnormal finding of lung field; Z86.15 Personal history of latent tuberculosis infection | CPT/HCPCS: 99214 ==

== ENCOUNTER → 2023-02-25 14:33 | Outpatient (BNVA) | payer MEDICARE, MEDICAID, SELFPAY | PROVIDERS: PCP Family Medicine; Visit Provider Internal Medicine | DX: K12.1 Other forms of stomatitis; R76.8 Other specified abnormal immunological findings in serum; M89.49 Other hypertrophic osteoarthropathy, multiple sites; R10.816 Epigastric abdominal tenderness; Z79.899 Other long term (current) drug therapy | CPT/HCPCS: 99214 ==

== ENCOUNTER → 2023-06-22 10:37 | Outpatient (BNVA) | payer MEDICARE, MEDICAID, SELFPAY | PROVIDERS: PCP Family Medicine; Visit Provider Internal Medicine | DX: R07.89 Other chest pain (principal); M94.0 Chondrocostal junction syndrome [Tietze]; M89.49 Other hypertrophic osteoarthropathy, multiple sites; K12.1 Other forms of stomatitis; M35.9 Systemic involvement of connective tissue, unspecified | CPT/HCPCS: 71046; 99214 ==

== ENCOUNTER 2023-09-03 09:08 | Outpatient (CLI) | payer MEDICARE, MEDICAID, SELFPAY ==
--- NOTE | 2023-09-03 09:30 | CT_ITS ---
WS: [id number] CT chest wo con [id number] HISTORY: R91.1 - Solitary pulmonary nodule TECHNIQUE: Axial imaging performed through the thorax. Coronal and sagittal reformats are submitted. All CT scans at [facility] use at least one of these dose optimization techniques: automated exposure control; mA and/or kV adjustment per patient size (includes targeted exams where dose is mat ched to clinical indication); or iterative reconstruction. CONTRAST: None DLP: 328.06 mGy.cm COMPARISON: 11/23/2022, 03/16/2022, 07/31/2020 Lungs and central airway: Mild pulmonary hyperexpansion. Previously described 3 mm noncalcified nodul es in the anterior RIGHT middle lobe are reidentified without increase in size. There are a few addit ional small, micronodules in the upper lung [place]. These are all stable. There are no nodules that a re increasing in size. No pneumonia. Pleura: Normal. No pleural effusion. Heart and pericardium: Normal size heart with no pericardial effusion. Mediastinum and khushbu: No mediastinum or hilar adenopathy. Vessels: Mild atherosclerosis aorta. Pulmonary artery is mildly enlarged at 3.3 cm. Chest wall and lower neck: No soft tissue masses. Upper abdomen: Prior cholecystectomy. Reidentified is a low-attenuation mass in the posterior upper L EFT kidney measuring 3.3 x 3.1 cm. Hounsfield units are low consistent with a cyst. Cannot be further characterized without IV contrast. Suprarenal mild atherosclerosis within the aorta. Osseous structures: Mild increase in thoracic kyphosis and scoliosis. IMPRESSION: 1. No interval change or increase in size of the less than 5 mm pulmonary nodules in the anterior RI GHT middle lobe. There are a few additional micronodules which are also unchanged. No change since . Additional 12-month chest CT follow-up can be performed to document long-term stability. 2. Prior cholecystectomy. 3. No adenopathy. 4. Mild pulmonary hypertension.
== END 2023-09-03 09:09 | disposition home or self-care (01) ==
LOC: RAD 09:09
PROVIDERS: PCP Family Medicine; Visit Provider Internal Medicine Pulmonary Disease
DX: R91.8 Other nonspecific abnormal finding of lung field (principal); Z90.49 Acquired absence of other specified parts of digestive tract; I27.20 Pulmonary hypertension, unspecified
CPT/HCPCS: 71250

== ENCOUNTER → 2023-09-10 09:17 | Outpatient (BNVA) | payer MEDICARE, MEDICAID, SELFPAY | PROVIDERS: PCP Family Medicine; Visit Provider Family Medicine Adult Medicine | DX: N39.0 Urinary tract infection, site not specified (principal) | CPT/HCPCS: 81000 ==

== ENCOUNTER → 2023-12-16 08:00 | Outpatient (BNVA) | payer MEDICARE, MEDICAID, SELFPAY | PROVIDERS: PCP Family Medicine; Visit Provider Internal Medicine Pulmonary Disease | DX: J98.4 Other disorders of lung (principal); G60.9 Hereditary and idiopathic neuropathy, unspecified; R91.1 Solitary pulmonary nodule; R76.8 Other specified abnormal immunological findings in serum; M25.641 Stiffness of right hand, not elsewhere classified; M25.642 Stiffness of left hand, not elsewhere classified; Z87.891 Personal history of nicotine dependence; J47.9 Bronchiectasis, uncomplicated; R42 Dizziness and giddiness | CPT/HCPCS: 99214 ==

== ENCOUNTER → 2024-11-29 11:56 | Outpatient (BNVA) | payer MEDICARE, MEDICAID, SELFPAY | PROVIDERS: PCP Family Medicine; Visit Provider Nurse Practitioner | DX: J98.4 Other disorders of lung (principal); J84.10 Pulmonary fibrosis, unspecified | CPT/HCPCS: 71046 ==

== ENCOUNTER 2024-12-28 08:03 | Outpatient (CLI) | payer OTHER, MEDICAID, SELFPAY ==
--- NOTE | 2024-12-28 08:45 | CTR_ITS ---
PROCEDURE INFORMATION: Exam: CT Chest Without Contrast; Diagnostic Exam date and time: 12/28/2024 8:23 AM Age: 74 years old Clinical indication: Condition or disease; Lung condition and disease; Pulmonary nodule, solitary; Additional info: F/u rml nodule 5mm TECHNIQUE: Imaging protocol: Diagnostic computed tomography of the chest without contrast. Radiation optimization: All CT scans at this facility use at least one of these dose optimization techniques: automated exposure control; mA and/or kV adjustment per patient size (includes targeted exams where dose is matched to clinical indication); or iterative reconstruction. COMPARISON: CT chest wo con [id number] 09/03/2023 10:04 AM RADIATION DOSE METRICS: Total DLP (mGy-cm): 319.87 FINDINGS: Lungs: No focal consolidation. Stable appearance of clustered nodules measuring less than 5 mm in the anterior right middle lobe, likely infectious or inflammatory in etiology. Mucous plugging and bronchial wall thickening in the bilateral lower lobes. Right lower lobe atelectasis. Pleural spaces: Unremarkable. No pneumothorax. No pleural effusion. Heart: Unremarkable. No cardiomegaly. No pericardial effusion. Coronary arteries: Mild coronary artery calcification. Lymph nodes: Unremarkable. No enlarged lymph nodes. Vasculature: Unremarkable. No aortic aneurysm. Gallbladder and biliary ducts: Status post cholecystectomy. Kidneys: Simple cyst in the left kidney, requiring no further follow-up. Bones/joints: Unremarkable. No acute fracture. Soft tissues: Unremarkable. CT/CT chest wo con [id number] IMPRESSION: Stable clustered nodularity in the anterior right middle lobe. For patients at low risk (minimal or absent history of smoking and of other known risk factors), no routine follow-up is indicated. For patients at high risk (history of smoking or of other known risk factors), consider optional CT Chest at 12 months. (Reference: Noa) COMMENTS: Consistent with the [employer]'s Incidental Findings Committee white paper (J Am Jian Radiol 2018): Any incidental renal lesion less than 1 cm or classified as too small to characterize, or any incidental cystic renal lesion characterized as simple-appearing, is likely benign. No follow-up imaging is recommended for these lesions per consensus recommendations based on imaging criteria. REFERENCES: Noa Fisher et al. Guidelines for Management of Incidental Pulmonary Nodules Detected on CT Images: From the Fleischner Society 2017. Radiology. 2017;284(1):228-243.
[2024-12-28 12:04] LABS: Alanine Aminotransferase 12 U/L (0-33); Albumin Level 4.1 g/dL (3.5-5.2); Alkaline Phosphatase 81 U/L (35-105); Anion Gap 14.4 (5-19); Aspartate Amino Transferase 19 U/L (0-32); Blood Urea Nitrogen 13 mg/dL (8-23); Calcium 9.4 mg/dL (8.5-10.5); Carbon Dioxide 25 mmol/L (22-29); Chloride 105 mmol/L (98-107); Globulin 3.1 g/dL (1.3-4.6); Glucose 83 mg/dL (65-115); Iron 71 ug/dL (37-145); Osmolality Calculated 289 mOsm/kg (285-295); Potassium 4.4 mmol/L (3.5-5.1); Sodium 140 mmol/L (136-145); Total Bilirubin 0.2 mg/dL (0.15-1.2); Total Protein 7.2 g/dL (6.6-8.7)
[2024-12-28 13:33] LABS: Estmated Average Glucose 108; Hemoglobin A1C 5.4 % (4.0-6.0)
[2024-12-28 14:19] LABS: Free T4 Free Thyroxine 1.13 ng/dL (0.82-1.77); Thyroid Stimulating Hormone 2.39 uIU/mL (0.27-4.20)
[2024-12-28 15:29] LABS: Vitamin B12 448 pg/mL (232-1245)
== END 2024-12-28 08:04 | disposition home or self-care (01) ==
PROVIDERS: PCP Family Medicine; Visit Provider Family Medicine
DX: R91.1 Solitary pulmonary nodule (principal); I48.20 Chronic atrial fibrillation, unspecified; Z79.52 Long term (current) use of systemic steroids; K29.70 Gastritis, unspecified, without bleeding; R76.8 Other specified abnormal immunological findings in serum; M35.2 Behcet's disease; M89.49 Other hypertrophic osteoarthropathy, multiple sites; F51.04 Psychophysiologic insomnia; R73.01 Impaired fasting glucose; R91.8 Other nonspecific abnormal finding of lung field; J98.11 Atelectasis; I25.10 Atherosclerotic heart disease of native coronary artery without angina pectoris; Z90.49 Acquired absence of other specified parts of digestive tract; N28.1 Cyst of kidney, acquired
CPT/HCPCS: 71250; 80053; 82607; 83036; 83540; 84439; 84443; 86140

== ENCOUNTER 2025-04-27 14:51 | Outpatient (CLI) | payer MEDICARE, MEDICAID, SELFPAY ==
--- NOTE | 2025-04-27 15:30 | XR_ITS ---
WS: [id number] SCREENING DEXA SCAN [employer] CLINICAL INFORMATION: postmenopausal COMPARISON: None. FINDINGS: The L1-L4 bone mineral density measures 0.900 g/cm2. This corresponds to a T score score of -2.3 and Z score of -0.8. Left femoral neck bone mineral density measures 0.663 g/cm2. This corresponds to a T score of -2.7 and Z score of -1.2. Right femoral neck bone mineral density measures 0.582 g/cm2. This corresponds to a T score -3.4of and Z score of -1.9. Mean femoral neck bone mineral density measures 0.622 g/cm2. This corresponds to a T score of -3.1 and Z score of -1.5. XR/XR DEXA axial skeleton* [id number] IMPRESSION: Osteopenia lumbar spine at the upper end of the range. Osteoporosis femoral nec ks Patient's FRAX calculated 10 year probability for major osteoporotic fracture i s 38.6% and osteoporotic hip fracture is 24.0%.
== END 2025-04-27 14:52 | disposition home or self-care (01) ==
LOC: RAD 14:52
PROVIDERS: PCP Nurse Practitioner Family; Visit Provider Family Medicine
DX: Z13.820 Encounter for screening for osteoporosis (principal); Z79.52 Long term (current) use of systemic steroids; Z78.0 Asymptomatic menopausal state; M85.88 Other specified disorders of bone density and structure, other site; M81.0 Age-related osteoporosis without current pathological fracture
CPT/HCPCS: 77080

== ENCOUNTER → 2025-07-04 08:11 | Outpatient (BNVA) | payer MEDICARE, MEDICAID, SELFPAY | PROVIDERS: PCP Nurse Practitioner Family; Visit Provider Nurse Practitioner Family | DX: L57.0 Actinic keratosis (principal); L82.1 Other seborrheic keratosis; L57.8 Other skin changes due to chronic exposure to nonionizing radiation | CPT/HCPCS: 99204 ==